=== PATIENT | female | born 1955 | race African-American/Black ===

== ENCOUNTER 2019-04-27 08:38 | Observation (INO) | payer OTHER ==
[2019-04-27] MEDS ORDERED: Ondansetron PF 4 MG/2 ML Vial ONE (09:01)
[2019-04-27 10:22] LABS: Bilirubin Negative (Negative); Blood, Urine Trace (Negative); Clarity Turbid (Clear); Glucose, Urine (Dipstick) Normal (Negative); Leukocyte 500 Leu/uL (Negative); Nitrite Negative (Negative); Protein, Urine (Dipstick) 20 mg/dL (Neg-Trace); RBC/HPF 0-3 HPF (0-3); Urobilinogen Normal mg/dL (Less than 2); WBC/HPF Greater than 50 HPF (0-3)
[2019-04-27 10:29] LABS: Bacteria/HPF 1+ HPF (None Seen)
[2019-04-27 10:36] LABS: ALT (SGPT) 20 U/L (8-55); AST (SGOT) 30 U/L (5-34); Albumin 3.5 g/dL (3.4-4.8); Alkaline Phosphatase 112 U/L (40-110); Anion Gap 13 mmol/L (10-20); BUN (Urea Nitrogen) 28 mg/dL (9.8-20.1); Bilirubin, Total 0.6 mg/dL (0.2-1.2); Calc. Creatinine Clearance 0 mL/min (70-130); Calcium 8.9 mg/dL (7.8-10.44); Carbon Dioxide 22 mmol/L (23-31); Chloride 107 mmol/L (98-107); Estimated GFR-MDRD 37; Globulin 3.4 g/dL (2.4-3.5); Glucose 120 mg/dL (80-115); Potassium 3.2 mmol/L (3.5-5.1); Protein, Total 6.9 g/dL (6.0-8.3); Sodium 139 mmol/L (136-145)
[2019-04-27 10:38] LABS: Band 19 % (5-11); Eosinophils 1 % (0-10); Hemoglobin 12.4 g/dL (12.0-16.0); Lymphocytes 11 % (21-51); MDiff Complete? YES; Mean Corpuscular HGB CONC 31.8 g/dL (32.0-36.0); Mean Corpuscular Hemoglobin 27.2 pg (27.0-31.0); Mean Corpuscular Volume 85.6 fL (78.0-98.0); Mean Platelet Volume 8.4 fL (7.4-10.4); Metamyelocyte 1 % (0-0); Monocytes 2 % (0-10); Neutrophil 66 % (42-75); Platelet Count 227 thou/uL (130-400); RBC Distribution Width 12.3 % (11.5-14.5); RBC Morphology Normal; Red Blood Cell (RBC) Count 4.55 mill/uL (4.20-5.40); White Blood Cell (WBC) Count 10.9 thou/uL (4.8-10.8)
[2019-04-27] MEDS ORDERED: Potassium Chloride 20 MEQ TAB ONE (11:30)
[2019-04-27] MEDS ORDERED: cefTRIAXone\\ROCEPHIN 2 GM VIAL ONE (11:30)
--- NOTE | 2019-04-27 12:15 | PDOC.FPRHP ---
- History of Present Illness Chief Complaint: chills History of Present Illness: Pt is a 63 yo female who presents for fatigue, chills, weakness. She states her symptoms started yesterday with chills. She had an episode of emesis in the evening. When she woke this morning she experience fatigue, unable to get out of bed. At baseline she is ambulatory around the house. She then called EMS and was found to have a temp of 102.7. She denies increased frequency, retention, dysuria, hematuria. She feels much better after receiving fluids and abx. ED Course: The patient was found to have elevated bands, hypokalemia, and elevated creatinine with a lactic acid of 2.6. She was given 2L NS, 40mEqKCl, zofran, rocephin 2g. - Allergies/Adverse Reactions Allergies Allergy/AdvReac Type Severity Reaction Status Date / Time No Known Drug Allergies Allergy Verified 04/27/19 13:38 - Home Medications Medication Instructions Recorded Confirmed Type Amlodipine [Norvasc] 10 mg PO DAILY 04/27/19 04/27/19 History Colchicine [Colcrys] 0.6 mg PO DAILY 04/27/19 04/27/19 History Hydrochlorothiazide 25 mg PO QAM 04/27/19 04/27/19 History Insulin Aspart [Novolog Flexpen] 1 unit SQ ASDIR PRN 04/27/19 04/27/19 History Insulin Aspart [Novolog Flexpen] 8 units SQ TID-WM 04/27/19 04/27/19 History Insulin Glargine,Hum.Rec.Anlog 24 unit SC HS 04/27/19 04/27/19 History [Lantus Solostar] Nebivolol HCl [Bystolic] 20 mg PO BID 04/27/19 04/27/19 History Pravastatin Sodium 10 mg PO HS 04/27/19 04/27/19 History Spironolactone 25 mg PO DAILY 04/27/19 04/27/19 History - History PMHx: DM2, HTN, Hepatitis C s/p treatment, HLD, CAD s/p MD with no stents placed PSHx: section x3 FHx: Father - MD in 70s Social: , denies tobacco, drug use. Reports occasional EtOH use, no heavy drinking PCP: Lizette Certified Ethical Hacker: Lizette Code Status: Full - Review of Systems General: reports: fever/chills (chills), fatigue Eyes: denies: eye pain, vision changes ENT: denies: nasal congestion, rhinorrhea Respiratory: denies: cough, shortness of breath Cardiovascular: denies: chest pain, edema Gastrointestinal: reports: nausea, vomiting. denies: diarrhea, abdominal pain Genitourinary: denies: dysuria, polyuria, discharge Skin: denies: rashes, lesions Musculoskeletal: denies: swelling, arthritis/arthralgias Neurological: reports: weakness. denies: numbness Psychological: denies: anxiety, depression - Vital signs BP: 108/80 HR: 96 RR: 16 Tmax: 102.7 Pox: 97% on RA - Physical Exam Constitutional: NAD, awake, alert and oriented, well developed HEENT: PERRLA, EOMI Neck: FROM, trachea midline Heart: RRR, normal S1/S2, pulses present, no edema Lungs: CTAB, no respiratory distress, good air movement, no wheezing Abdomen: soft, non-tender, bowel sounds present -Abdomen: no suprapubic tenderness, no CVA tenderness Musculoskeletal: normal tone, ROM grossly normal Neurological: no focal deficit, CN II-XII intact Skin: no rash/lesions, no jaundice Heme/Lymphatic: no purpura, no petechia Psychiatric: normal mood and affect, good judgment and insight FMR H&P: Results - Labs Result Diagrams: 04/27/19 10:06 04/27/19 10:06 Lab results: WBC 10.9 thou/uL (4.8-10.8) H 04/27/19 10:06 Hgb 12.4 g/dL (12.0-16.0) 04/27/19 10:06 Hct 38.9 % (36.0-47.0) 04/27/19 10:06 MCV 85.6 fL (78.0-98.0) 04/27/19 10:06 Plt Count 227 thou/uL (130-400) 04/27/19 10:06 Band Neuts % (Manual) 19 % (5-11) H 04/27/19 10:06 Sodium 139 mmol/L (136-145) 04/27/19 10:06 Potassium 3.2 mmol/L (3.5-5.1) L 04/27/19 10:06 Chloride 107 mmol/L (98-107) 04/27/19 10:06 Carbon Dioxide 22 mmol/L (23-31) L 04/27/19 10:06 BUN 28 mg/dL (9.8-20.1) H 04/27/19 10:06 Creatinine 1.70 mg/dL (0.6-1.1) H 04/27/19 10:06 Glucose 120 mg/dL (80-115) H 04/27/19 10:06 Lactic Acid 2.6 mmol/L (0.5-2.2) H 04/27/19 10:06 Calcium 8.9 mg/dL (7.8-10.44) 04/27/19 10:06 Total Bilirubin 0.6 mg/dL (0.2-1.2) 04/27/19 10:06 AST 30 U/L (5-34) 04/27/19 10:06 ALT 20 U/L (8-55) 04/27/19 10:06 Alkaline Phosphatase 112 U/L (40-110) H 04/27/19 10:06 Serum Total Protein 6.9 g/dL (6.0-8.3) 04/27/19 10:06 Albumin 3.5 g/dL (3.4-4.8) 04/27/19 10:06 Urine Ketones Negative mg/dL (Negative) 04/27/19 10:03 Urine Blood Trace (Negative) A 04/27/19 10:03 Urine Nitrite Negative (Negative) 04/27/19 10:03 Ur Leukocyte Esterase 500 Dione/uL (Negative) A 04/27/19 10:03 Urine RBC 0-3 HPF (0-3) 04/27/19 10:03 Urine WBC Greater than 50 HPF (0-3) A 04/27/19 10:03 Ur Squamous Epith Cells 4-6 HPF (0-3) A 04/27/19 10:03 Urine Bacteria 1+ HPF (None Seen) A 04/27/19 10:03 FMR H&P: A/P - Problem List (1) Urinary tract infection Current Visit: Yes Status: Acute (2) Lactic acid acidosis Current Visit: Yes Status: Acute Code(s): E87.2 - ACIDOSIS (3) HTN (hypertension) Current Visit: Yes Status: Acute Code(s): I10 - ESSENTIAL (PRIMARY) HYPERTENSION (4) Sepsis Current Visit: Yes Status: Acute Code(s): A41.9 - SEPSIS, UNSPECIFIED ORGANISM (5) Diabetes Current Visit: Yes Status: Acute Code(s): E11.9 - TYPE 2 DIABETES MELLITUS WITHOUT COMPLICATIONS (6) HLD (hyperlipidemia) Current Visit: Yes Status: Acute Code(s): E78.5 - HYPERLIPIDEMIA, UNSPECIFIED (7) Hx of hepatitis C Current Visit: Yes Status: Acute Code(s): Z86.19 - PERSONAL HISTORY OF OTHER INFECTIOUS AND PARASITIC DISEASES - Plan Pt is a 63 yo female here for: # Sepsis 2/2 UTI - recophin 1 gm daily - s/p 2 L, start maintenance fluids - physical therapy - pending lactic, UCx BCx, procal # Elevated lactic acid - repeat # Hypokalemia - replete, recheck in am # HTN - hold home meds, restart am # ADRYAN vs CKD - administer fluids to see if creatinine improves - FeUrea pending # DM - not currently on medication, will clarify she does not take insulin # HLD - continue statin therapy #CAD - stable Diet: HH Fluids: LR 130 mls/hr VTE: Lovenox Code: Full Dispo: < 48 hrs FMR H&P: Upper Level - Pertinent history 63 y/o F reports last night she started getting chills and then had a single episode of N/V. She went to sleep and woke up this morning feeling chills again so she called EMS. Denies CP, SOB, cough, rhinorrhea, sore throat, fever, dysuria, abd pain. She has been tolerating food well. About 3-4 weeks ago she went to the doctor because of R flank pain. She did not have any other urinary symptoms at that time. The doctor said her kidneys were hurt. Denies any h/o kidney stones. She recently had tooth pulled on Apr 18 and was on penicillin for the infection before that. She reports she feels similar to when she has previously had UTI's. - Pertinent findings Vitals: BP: 108/80 HR: 96 RR: 16 Tmax: 102.7 Pox: 97% on RA PE: Gen - alert, oriented, NAD, resting comfortably in bed HEENT - MMM CV - RRR, no murmurs Lungs - CTAB, no wheezes Abd - soft, NTTP Back - No CVAT Labs: WBC 10.9, 19% bands, Lactic acid 2.6, BUN 28, Cr 1.7, GFR 37, K 3.2 - Plan Date/Time: 04/27/19 1215 I, Elina Meza MD, PGY-3, have evaluated this patient and agree with findings/ plan as outlined by internal corrosion specialist resident. Pertinent changes/additions are listed here. 1. Sepsis 2/2 UTI Pt with temp 102.7, HR 96, 19% bands, and lactic acid 2.6 as well as UA that showed >50 WBC and 1+ bacteria, but was also a clean catch with 4-6 squamous epithelial cells. She also of note had a recent tooth pulled after an infection that was treated with penicillin. s/p 2g rocephin, 2L NS -Will collect BCx although pt given abx prior to BCx -UCx -Continue rocephin -Check procal -Trend lactic acid -LR @ 130 2. ADRYAN vs CKD Pt with BUN 28 and Cr 1.7, likely prerenal ADRYAN. -Will check FeUrea -s/p NS 2L, will give LR @ 130 -Monitor -Avoid nephrotoxic agents 3. Elevated lactic acid Initial lactic acid 2.6, likely 2/2 sepsis -Will trend and give IVF as above 4. Hypokalemia Initial K 3.2, s/p 40mEq KCl in ED -Will repeat in AM with mag level 5. DM2 -Continue home meds -SSI -Diabetic order set 6. HTN Currently on lower end -Monitor closely in the setting of sepsis -Continue HCTZ, spironolactone, amlodipine, bystolic as long as BP will tolerate it 7. HLD -Continue pravastatin Code Status: Full Diet: CC Dispo: Obs on medical, LOS<48 hours Addendum - Attending - Attending Attestation Date/Time: 04/27/19 1700 I personally evaluated the patient and discussed the management with Dr. Sandoval /Susana I agree with the History, Examination, Assessment and Plan documented above with any addition or exceptions noted below. 63 yo AAF PMH HTN, CAD, HLD, and IDDM. Presents with 2 day hx of malaise, dysuria, and chills. No recent hospitalizations. Initial BP in er 90s/60s. resolved with fluid bolus. Exam benign. Labs show elevated WBC, elevated procal , and UA c/w UTI. S/P 2L fluid bolus and rocephin 1g. Observation for complicated UTI, volume depletion, and ADRYAN vs CKD. continue IV fluids and rocephin. blood cultures obtained on the floor. urine cultures pending. LOS likely < 2 midnights.
[2019-04-27] MEDS ORDERED: Ondansetron ODT 4 MG TAB PO PRN (13:29)
[2019-04-27] MEDS ORDERED: Ondansetron PF 4 MG/2 ML Vial IVP PRN (13:29)
[2019-04-27] MEDS ORDERED: Acetaminophen 325 MG TAB PO PRN (13:30)
[2019-04-27] MEDS ORDERED: Sodium Chloride 0.9% 1,000 ML IV SCH (13:30)
[2019-04-27] MEDS ORDERED: Dextrose 50% Abboject 50 ML SYRINGE SLOW IVP PRN (13:30)
[2019-04-27] MEDS ORDERED: HumaLOG 300 UNITS/3 ML VIAL SC PRN ×2 (13:30)
[2019-04-27] MEDS ORDERED: Dextrose 5% in Water 1,000 ML IV PRN (13:30)
[2019-04-27 13:35] VITALS: BMI 36.5
[2019-04-27] MEDS: Lactated Ringer's 1,000 ML IV SCH ×2 (13:55→21:42)
[2019-04-27 14:33] LABS: Lactic Acid 1.9 mmol/L (0.5-2.2)
[2019-04-27 14:56] LABS: Creatinine, Urine 93.61 mg/dL (47-110)
[2019-04-27] MEDS ORDERED: Simvastatin 5 MG TAB PO SCH (21:00)
[2019-04-28 05:07] LABS: #Eosinphils 0.2 thou/uL (0.0-0.7); #Lymphocytes 1.8 thou/uL (1.20-3.40); #Neutrophils 11.3 thou/uL (1.40-6.50); %Basophils 0.3 % (0.0-1.0); %Eosinophils 1.4 % (0.0-10.0); %Lymphocytes 12.5 % (21.0-51.0); %Monocytes 6.8 % (0.0-10.0); Hemoglobin 12.2 g/dL (12.0-16.0); Mean Corpuscular HGB CONC 32.6 g/dL (32.0-36.0); Mean Corpuscular Hemoglobin 27.7 pg (27.0-31.0); Mean Corpuscular Volume 84.9 fL (78.0-98.0); Mean Platelet Volume 9.1 fL (7.4-10.4); Platelet Count 207 thou/uL (130-400); RBC Distribution Width 12.2 % (11.5-14.5); Red Blood Cell (RBC) Count 4.41 mill/uL (4.20-5.40); White Blood Cell (WBC) Count 14.4 thou/uL (4.8-10.8)
[2019-04-28] MEDS: Lactated Ringer's 1,000 ML IV SCH (05:15)
[2019-04-28 05:29] LABS: Anion Gap 12 mmol/L (10-20); BUN (Urea Nitrogen) 21 mg/dL (9.8-20.1); Calc. Creatinine Clearance 54 mL/min (70-130); Carbon Dioxide 22 mmol/L (23-31); Chloride 107 mmol/L (98-107); Estimated GFR-MDRD 40; Glucose 162 mg/dL (80-115); Potassium 3.9 mmol/L (3.5-5.1); Sodium 137 mmol/L (136-145)
--- NOTE | 2019-04-28 06:07 | PDOC.FM ---
- Subjective Subjective: Pt is doing well today. She has no complaints. Denies fever, chills. Mildly fatigued but improving. She would feel comfortable going home today. Her feels fine managing her at home. - Objective Vital Signs & Weight: Vital Signs (12 hours) Temp Pulse Resp BP Pulse Ox 04/28/19 03:09 99.3 F 82 17 113/64 96 04/27/19 19:35 99.3 F 79 16 128/69 97 Weight Weight 94.483 kg I&O: 04/26/19 04/27/19 04/28/19 06:59 06:59 06:59 Intake Total 2683 Output Total 1150 Balance 1533 Result Diagrams: 04/28/19 04:43 04/28/19 04:43 Phys Exam - Physical Examination Constitutional: NAD HEENT: PERRLA, moist MMs Respiratory: no wheezing, no rhonchi, clear to auscultation bilateral Cardiovascular: RRR, no significant murmur Gastrointestinal: soft, non-tender, no distention No suprapubic pain Musculoskeletal: no edema, pulses present Psychiatric: normal affect, A&O x 3 Dx/Plan (1) Urinary tract infection Status: Acute (2) Lactic acid acidosis Code(s): E87.2 - ACIDOSIS Status: Acute (3) HTN (hypertension) Code(s): I10 - ESSENTIAL (PRIMARY) HYPERTENSION Status: Acute (4) Sepsis Code(s): A41.9 - SEPSIS, UNSPECIFIED ORGANISM Status: Acute (5) Diabetes Code(s): E11.9 - TYPE 2 DIABETES MELLITUS WITHOUT COMPLICATIONS Status: Acute (6) HLD (hyperlipidemia) Code(s): E78.5 - HYPERLIPIDEMIA, UNSPECIFIED Status: Acute (7) Hx of hepatitis C Code(s): Z86.19 - PERSONAL HISTORY OF OTHER INFECTIOUS AND PARASITIC DISEASES Status: Acute - Plan Plan: Pt is a 63 yo female here for: # Sepsis 2/2 UTI - recophin 2 gm daily - s/p 2 L, continue maintenance fluids - physical therapy - UCx BCx, procal elevated from 8 to 22.4. Will repeat procal at 1400 to see if downtrending. Otherwise pt appears stable, AAO x 3, w/o complaints, afebrile. # Elevated lactic acid - resolved - repeat 1.9 # Hypokalemia - replete as necessary # HTN - hold home meds, holding at this time as her BP is low normal # ADRYAN vs CKD - improving, unsure pt's baseline, will continue fluids - FeUrea pre-renal # DM - restarted Lantus 24 U, Humalog 8 U TID - SSI # HLD - continue statin therapy #CAD - stable Diet: HH Fluids: LR 130 mls/hr VTE: Lovenox Code: Full Dispo: < 48 hrs Addendum - Attending - Attending Attestation Date/Time: 04/28/19 1210 I personally evaluated the patient and discussed the management with Dr. Sandoval I agree with the History, Examination, Assessment and Plan documented above with any addition or exceptions noted below. clinically improved. prelim culture E.coli. sensitivities pending. will d/c IV fluids, restart beta casey and repeat procal this afternoon. If down trending , will d/c on 7 total days of omnicef. if not, IV rocephin overnight and recheck labs in the morning and await sensitivities.
[2019-04-28] MEDS: HumaLOG 300 UNITS/3 ML VIAL SC SCH ×2 (08:39→13:54)
[2019-04-28] MEDS ORDERED: Enoxaparin Sodium 40 MG/0.4 ML SYRINGE SC SCH (09:00)
[2019-04-28] MEDS ORDERED: cefTRIAXone\\ROCEPHIN 2 GM in Sodium Chloride 0.9% 100 ML IVPB SCH (12:00)
[2019-04-28] MEDS ORDERED: cefTRIAXone\\ROCEPHIN 1 GM in Sodium Chloride 0.9% 100 ML IVPB SCH (12:00)
[2019-04-28] MEDS ORDERED: Nebivolol HCl 5 MG TAB PO SCH ×2 (12:30→21:00)
[2019-04-28 15:55] VITALS: BP 118/71; TEMP 99
[2019-04-28] MEDS ORDERED: Non-Formulary Item 1 EACH (Insulin Glargine,Hum.Rec.Anlog [Lantus Solostar] 24 UNIT) SC SCH (21:00)
[2019-04-28] MEDS ORDERED: Insulin Glargine 24 UNITS in Pre-Filled Syringe 1 EACH SC SCH (21:00)
--- NOTE | 2019-05-01 09:44 | DIS ---
DATE OF ADMISSION: 04/27/2019 DATE OF DISCHARGE: 04/28/2019 RESIDENT: Chase Sandoval DO ADMITTING ATTENDING: Billy Bosch MD DISCHARGE ATTENDING: Billy Bosch MD CONSULTS: None. PROCEDURES: None. PRIMARY DIAGNOSES: 1. Sepsis secondary to urinary tract infection. 2. Urinary tract infection. 3. Elevated lactic acid. 4. Hypokalemia. SECONDARY DIAGNOSES: 1. Hypertension. 2. Chronic kidney disease. 3. Diabetes mellitus. 4. Hyperlipidemia. 5. Coronary artery disease. DISCHARGE MEDICATIONS: 1. Pravastatin 10 mg p.o. at bedtime. 2. Amlodipine 10 mg p.o. daily. 3. Spironolactone 25 mg p.o. daily. 4. Bystolic 20 mg p.o. b.i.d. 5. Hydrochlorothiazide 25 mg p.o. q.a.m. 6. Colchicine 0.6 mg p.o. daily. 7. Insulin glargine 24 units subcu at bedtime. 8. NovoLog 8 units subcu t.i.d. with meals. 9. Cefdinir 300 mg p.o. b.i.d. x7 days. DISCONTINUED MEDICATIONS: None. HISTORY OF PRESENT ILLNESS/HOSPITAL COURSE: Emilia Lynn is a 63-year-old female, who presented for fatigue, chills, and weakness. She was found to have sepsis secondary to urinary tract infection. She says that she had the symptoms for the day prior and was unable to get out of bed due to fatigue in the morning and she was seen at the emergency department. At baseline, she is able to ambulate well at home per family. The EMS documented her have a temperature of 102.7. She also had a lactic acid of 2.6, white blood cell count of 10.9 with bandemia. The patient's heart rate was 96 and oxygen saturations were fine. Her UA revealed urine bacteria 1+, urine squamous epithelial cells, urine white blood cells greater than 50, urine leukocyte esterase 500, negative nitrites. Her urine culture grew out E coli. The patient received 2 days worth of ceftriaxone for her urinary tract infection with good sensitivities on the urine culture. The patient was then discharged to home with Omnicef for 14 days. Blood cultures were negative. Of note, the patient had a procalcitonin of 22.43, which downtrended to 18.14, at the time of discharge. The patient also felt well with going home and felt that she had returned to her baseline. She had a good p.o. intake and was able to ambulate on her own. This plan was also discussed with her . DISPOSITION: Stable. DISCHARGE INSTRUCTIONS: 1. Location: [facility]. 2. Diet: Heart healthy and diabetic diet. 3. Activity: Ad pretty. 4. Followup: Follow up with her Calin Bauer provider within 7 days. Job ID: [id number]
== END 2019-04-28 16:53 | disposition home or self-care (01) ==
LOC: ERS 08:38 → 2SW 11:11
PROVIDERS: ADMIT Family Medicine; ATTEND Family Medicine
DX: A41.9 Sepsis, unspecified organism (principal); N39.0 Urinary tract infection, site not specified; E87.2 Acidosis; E87.6 Hypokalemia; E11.9 Type 2 diabetes mellitus without complications; I10 Essential (primary) hypertension; I25.10 Atherosclerotic heart disease of native coronary artery without angina pectoris; Z79.4 Long term (current) use of insulin; Z79.899 Other long term (current) drug therapy
CPT/HCPCS: 36415; 36416; 80048; 80053; 81003; 81015; 82570; 83605; 84145; 84540; 85025; 87040; 87077; 87086; 87186; 87804; 96361; 96365; 96366; 96372; 96375; G0378; J0696; J1650; J1815; J2405; J3490; J7120

== ENCOUNTER 2020-06-29 09:25 | Inpatient (IN) | payer MEDICARE ==
[2020-06-29] MEDS ORDERED: Iopamidol-370 76% 500 ML 1 ML ONE (10:08)
[2020-06-29 10:18] LABS: ALT (SGPT) 20 U/L (8-55); AST (SGOT) 37 U/L (5-34); Albumin 3.7 g/dL (3.4-4.8); Alkaline Phosphatase 149 U/L (40-110); Anion Gap 17 mmol/L (10-20); BUN (Urea Nitrogen) 23 mg/dL (9.8-20.1); Bilirubin, Total 0.4 mg/dL (0.2-1.2); CK (CPK) 299 U/L (29-168); Calc. Creatinine Clearance 0 mL/min (70-130); Calcium 9.5 mg/dL (7.8-10.44); Carbon Dioxide 23 mmol/L (23-31); Chloride 105 mmol/L (98-107); Globulin 4.1 g/dL (2.4-3.5); Glucose 145 mg/dL (80-115); INR-International Normal Ratio 1.1; Potassium 3.6 mmol/L (3.5-5.1); Protein, Total 7.8 g/dL (5.8-8.1); Prothrombin Time 14.9 sec (12.0-14.7); Sodium 141 mmol/L (136-145)
[2020-06-29 10:33] LABS: #Eosinphils 0.1 thou/uL (0.0-0.7); #Lymphocytes 1.6 thou/uL (1.20-3.40); #Monocytes 0.4 thou/uL (0.11-0.59); #Neutrophils 3.3 thou/uL (1.40-6.50); %Basophils 0.5 % (0.0-1.0); %Eosinophils 2.6 % (0.0-10.0); %Lymphocytes 29.6 % (21.0-51.0); %Monocytes 6.5 % (0.0-10.0); %Neutrophils 60.8 % (42.0-75.0); Hemoglobin 14.8 g/dL (12.0-16.0); Mean Corpuscular HGB CONC 32.7 g/dL (32.0-36.0); Mean Corpuscular Hemoglobin 27.9 pg (27.0-31.0); Mean Corpuscular Volume 85.6 fL (78.0-98.0); Mean Platelet Volume 10.1 fL (7.4-10.4); Platelet Count 174 thou/uL (130-400); Red Blood Cell (RBC) Count 5.28 mill/uL (4.20-5.40); White Blood Cell (WBC) Count 5.4 thou/uL (4.8-10.8)
[2020-06-29 10:41] LABS: CKMB 2.6 ng/mL (0-6.6)
[2020-06-29] MEDS ORDERED: Aspirin 300 MG Suppository ONE (10:52)
[2020-06-29 11:36] LABS: Bacteria/HPF 1+ HPF (None Seen); Bilirubin Negative (Negative); Blood, Urine Negative (Negative); Clarity Clear (Clear); Glucose, Urine (Dipstick) Greater than 1000 mg/dL (Negative); Ketone, Urine Negative (Negative); Leukocyte 25 Leu/uL (Negative); Nitrite 1+ (Negative); Protein, Urine (Dipstick) Negative (Neg-Trace); RBC/HPF None Seen HPF (0-3); Specific Gravity, Urine 1.029 (1.002-1.036); Squamous Epithelial 0-3 HPF (0-3); Urobilinogen Normal mg/dL (Less than 2); pH, Urine 5.5 (5.0-9.0)
[2020-06-29] MEDS ORDERED: HumaLOG 300 UNITS/3 ML VIAL SC PRN (12:12)
[2020-06-29] MEDS ORDERED: Dextrose 5% in Water 1,000 ML IV PRN (12:12)
[2020-06-29] MEDS ORDERED: Acetaminophen 325 MG TAB PO PRN (12:12)
[2020-06-29] MEDS ORDERED: Dextrose 50% Abboject 50 ML SYRINGE SLOW IVP PRN (12:12)
[2020-06-29] MEDS ORDERED: Bisacodyl 10 MG SUPP PR PRN (12:12)
[2020-06-29] MEDS ORDERED: Acetaminophen 650 MG Suppository PR PRN (12:12)
[2020-06-29] MEDS ORDERED: Senokot S 8.6-50 MG TAB PO PRN (12:12)
[2020-06-29] MEDS ORDERED: Ondansetron PF 4 MG/2 ML Vial IVP PRN (12:12)
[2020-06-29] MEDS ORDERED: Calcium Carbonate 500 MG ChewTAB PO PRN (12:12)
[2020-06-29] MEDS ORDERED: Guaifenesin DM 100-10/5 ML UDCUP PO PRN (12:12)
[2020-06-29] MEDS ORDERED: cefTRIAXone\\ROCEPHIN 2 GM VIAL ONE (12:42)
[2020-06-29 13:49] LABS: Troponin I 0.033 ng/mL (< 0.028)
[2020-06-29 21:47] LABS: SARS-CoV-2 PCR by NAA Not Detected (NotDetected)
[2020-06-29] MEDS: Atorvastatin Calcium 40 MG TAB PO SCH (22:25)
[2020-06-29 22:33] VITALS: BMI 31.1
[2020-06-30] MEDS: D5 1/2 NS w/10 mEq KCl 1,000 ML/1,000 ML BAG IV SCH ×2 (00:59→17:34)
[2020-06-30 05:23] LABS: ALT (SGPT) 20 U/L (8-55); AST (SGOT) 35 U/L (5-34); Albumin 3.7 g/dL (3.4-4.8); Alkaline Phosphatase 112 U/L (40-110); Anion Gap 15 mmol/L (10-20); BUN (Urea Nitrogen) 23 mg/dL (9.8-20.1); Bilirubin, Total 0.6 mg/dL (0.2-1.2); Calc. Creatinine Clearance 56 mL/min (70-130); Calcium 9.6 mg/dL (7.8-10.44); Carbon Dioxide 23 mmol/L (23-31); Cardiac Risk 4.3 (Less than 4.5); Chloride 107 mmol/L (98-107); Cholesterol 107 mg/dl (< 200 Desired); Globulin 3.9 g/dL (2.4-3.5); Glucose 117 mg/dL (80-115); HDL Cholesterol 25 mg/dL (>60 Neg Risk); LDL Cholesterol, Calculated 64 mg/dL; Protein, Total 7.6 g/dL (5.8-8.1); Sodium 142 mmol/L (136-145); Triglycerides 90 mg/dL (Less than 150)
[2020-06-30 05:26] LABS: Potassium 2.9 mmol/L (3.5-5.1)
[2020-06-30] MEDS: Potassium Chloride 20 MEQ in Premix Bag 1 BAG IVPB SCH ×2 (06:06→11:21)
[2020-06-30 06:48] LABS: #Eosinphils 0.2 thou/uL (0.0-0.7); #Lymphocytes 2.4 thou/uL (1.20-3.40); #Monocytes 0.5 thou/uL (0.11-0.59); #Neutrophils 3.2 thou/uL (1.40-6.50); %Basophils 0.7 % (0.0-1.0); %Eosinophils 3.5 % (0.0-10.0); %Lymphocytes 37.3 % (21.0-51.0); %Monocytes 8.4 % (0.0-10.0); Hemoglobin 14.8 g/dL (12.0-16.0); Mean Corpuscular Hemoglobin 27.6 pg (27.0-31.0); Mean Corpuscular Volume 86.3 fL (78.0-98.0); Platelet Count 215 thou/uL (130-400); RBC Distribution Width 12.9 % (11.5-14.5); Red Blood Cell (RBC) Count 5.35 mill/uL (4.20-5.40); White Blood Cell (WBC) Count 6.4 thou/uL (4.8-10.8)
[2020-06-30] MEDS: Nebivolol HCl 5 MG TAB PO SCH (09:29)
[2020-06-30] MEDS: Enoxaparin Sodium 30 MG/0.3 ML SYRINGE SC SCH (09:29)
[2020-06-30] MEDS: Aspirin 300 MG Suppository PR SCH (09:29)
[2020-06-30] MEDS ORDERED: Colchicine 0.6 MG TAB PO SCH (13:15)
[2020-06-30] MEDS ORDERED: Amlodipine 10 MG TAB PO SCH (13:15)
[2020-06-30] MEDS: Atorvastatin Calcium 40 MG TAB PO SCH (21:17)
[2020-06-30] MEDS: Lantus 1000 UNITS/10 ML VIAL SC SCH (21:23)
[2020-07-01] MEDS: D5 1/2 NS w/10 mEq KCl 1,000 ML/1,000 ML BAG IV SCH ×2 (03:06→15:05)
[2020-07-01 06:13] LABS: Hemoglobin A1c 6.8 % (4.0-6.0)
[2020-07-01 06:35] LABS: ALT (SGPT) 23 U/L (8-55); AST (SGOT) 44 U/L (5-34); Albumin 3.4 g/dL (3.4-4.8); Alkaline Phosphatase 104 U/L (40-110); Anion Gap 16 mmol/L (10-20); BUN (Urea Nitrogen) 22 mg/dL (9.8-20.1); Bilirubin, Total 0.4 mg/dL (0.2-1.2); Calc. Creatinine Clearance 55 mL/min (70-130); Calcium 9.4 mg/dL (7.8-10.44); Carbon Dioxide 20 mmol/L (23-31); Chloride 106 mmol/L (98-107); Globulin 4.1 g/dL (2.4-3.5); Glucose 145 mg/dL (80-115); Magnesium 1.9 mg/dL (1.6-2.6); Potassium 3.6 mmol/L (3.5-5.1); Protein, Total 7.5 g/dL (5.8-8.1); Sodium 138 mmol/L (136-145)
[2020-07-01] MEDS: Amlodipine 10 MG TAB PO SCH (09:25)
[2020-07-01] MEDS: Colchicine 0.6 MG TAB PO SCH (09:27)
[2020-07-01] MEDS: Nebivolol HCl 5 MG TAB PO SCH (09:27)
[2020-07-01] MEDS: Enoxaparin Sodium 30 MG/0.3 ML SYRINGE SC SCH (09:31)
[2020-07-01] MEDS: Aspirin 300 MG Suppository PR SCH (09:32)
[2020-07-01] MEDS: HumaLOG 300 UNITS/3 ML VIAL SC PRN ×2 (14:03→18:24)
[2020-07-01] MEDS: Atorvastatin Calcium 40 MG TAB PO SCH (22:25)
[2020-07-01] MEDS: Lantus 1000 UNITS/10 ML VIAL SC SCH (22:26)
[2020-07-02 06:22] LABS: #Basophils 0.1 thou/uL (0.0-0.2); #Eosinphils 0.3 thou/uL (0.0-0.7); #Lymphocytes 2.7 thou/uL (1.20-3.40); #Monocytes 0.5 thou/uL (0.11-0.59); #Neutrophils 2.8 thou/uL (1.40-6.50); %Basophils 1.2 % (0.0-1.0); %Eosinophils 4.9 % (0.0-10.0); %Lymphocytes 42.7 % (21.0-51.0); %Monocytes 7.4 % (0.0-10.0); %Neutrophils 43.8 % (42.0-75.0); Hemoglobin 13.9 g/dL (12.0-16.0); Mean Corpuscular Hemoglobin 26.6 pg (27.0-31.0); Mean Corpuscular Volume 85.8 fL (78.0-98.0); Mean Platelet Volume 8.7 fL (7.4-10.4); Platelet Count 219 thou/uL (130-400); RBC Distribution Width 12.8 % (11.5-14.5); Red Blood Cell (RBC) Count 5.24 mill/uL (4.20-5.40); White Blood Cell (WBC) Count 6.4 thou/uL (4.8-10.8)
[2020-07-02 06:48] LABS: Anion Gap 13 mmol/L (10-20); BUN (Urea Nitrogen) 16 mg/dL (9.8-20.1); Calc. Creatinine Clearance 68 mL/min (70-130); Calcium 9.5 mg/dL (7.8-10.44); Carbon Dioxide 22 mmol/L (23-31); Chloride 106 mmol/L (98-107); Glucose 124 mg/dL (80-115); Magnesium 1.8 mg/dL (1.6-2.6); Potassium 3.4 mmol/L (3.5-5.1); Sodium 138 mmol/L (136-145)
[2020-07-02] MEDS: Aspirin 325 MG TAB PO SCH (08:38)
[2020-07-02] MEDS: Nebivolol HCl 5 MG TAB PO SCH (08:39)
[2020-07-02] MEDS: Colchicine 0.6 MG TAB PO SCH (08:40)
[2020-07-02] MEDS: Enoxaparin Sodium 30 MG/0.3 ML SYRINGE SC SCH (08:41)
[2020-07-02] MEDS: Amlodipine 10 MG TAB PO SCH (08:41)
[2020-07-02] MEDS ORDERED: Potassium Chloride 20 MEQ TAB PO SCH (08:45)
[2020-07-02] MEDS: HumaLOG 300 UNITS/3 ML VIAL SC PRN ×2 (12:36→17:14)
[2020-07-02] MEDS: Lantus 1000 UNITS/10 ML VIAL SC SCH (21:28)
[2020-07-02] MEDS: Atorvastatin Calcium 40 MG TAB PO SCH (21:28)
[2020-07-03] MEDS ORDERED: Losartan 25 MG TAB PO SCH (10:00)
[2020-07-03] MEDS: Amlodipine 10 MG TAB PO SCH (10:15)
[2020-07-03] MEDS: Aspirin 325 MG TAB PO SCH (10:16)
[2020-07-03] MEDS: Colchicine 0.6 MG TAB PO SCH (10:16)
[2020-07-03] MEDS: Nebivolol HCl 5 MG TAB PO SCH (10:17)
[2020-07-03] MEDS: Enoxaparin Sodium 30 MG/0.3 ML SYRINGE SC SCH (10:17)
[2020-07-03] MEDS: Lantus 1000 UNITS/10 ML VIAL SC SCH (22:02)
[2020-07-03] MEDS: Atorvastatin Calcium 40 MG TAB PO SCH (22:02)
[2020-07-04 07:45] VITALS: TEMP 98
[2020-07-04] MEDS: Aspirin 325 MG TAB PO SCH (08:36)
[2020-07-04] MEDS: Nebivolol HCl 5 MG TAB PO SCH (08:36)
[2020-07-04] MEDS: Colchicine 0.6 MG TAB PO SCH (08:36)
[2020-07-04 08:37] LABS: #Basophils 0.1 thou/uL (0.0-0.2); #Eosinphils 0.5 thou/uL (0.0-0.7); #Lymphocytes 2.9 thou/uL (1.20-3.40); #Monocytes 0.5 thou/uL (0.11-0.59); #Neutrophils 3.5 thou/uL (1.40-6.50); %Eosinophils 6.2 % (0.0-10.0); %Lymphocytes 38.9 % (21.0-51.0); %Monocytes 7.1 % (0.0-10.0); %Neutrophils 46.8 % (42.0-75.0); Hemoglobin 14.3 g/dL (12.0-16.0); Mean Corpuscular HGB CONC 32.9 g/dL (32.0-36.0); Mean Corpuscular Hemoglobin 28.1 pg (27.0-31.0); Mean Corpuscular Volume 85.6 fL (78.0-98.0); Mean Platelet Volume 9.4 fL (7.4-10.4); Platelet Count 242 thou/uL (130-400); Red Blood Cell (RBC) Count 5.09 mill/uL (4.20-5.40); White Blood Cell (WBC) Count 7.5 thou/uL (4.8-10.8)
[2020-07-04] MEDS: Amlodipine 10 MG TAB PO SCH (08:37)
[2020-07-04] MEDS: Enoxaparin Sodium 30 MG/0.3 ML SYRINGE SC SCH (08:37)
[2020-07-04 08:57] LABS: Anion Gap 15 mmol/L (10-20); BUN (Urea Nitrogen) 20 mg/dL (9.8-20.1); Calc. Creatinine Clearance 60 mL/min (70-130); Calcium 9.8 mg/dL (7.8-10.44); Carbon Dioxide 23 mmol/L (23-31); Chloride 105 mmol/L (98-107); Glucose 114 mg/dL (80-115); Magnesium 1.7 mg/dL (1.6-2.6); Potassium 3.8 mmol/L (3.5-5.1); Sodium 139 mmol/L (136-145)
[2020-07-04] MEDS ORDERED: Losartan 25 MG TAB PO SCH (09:00)
[2020-07-04 11:35] VITALS: BP 150/92
== END 2020-07-04 17:28 | DRG 65 ==
LOC: ERS 09:25 → ERHOLD 12:12 → 2SE 18:22 → OBSVTOIN 06-30 13:12
PROVIDERS: ADMIT Internal Medicine; ATTEND Internal Medicine
DX: I63.9 Cerebral infarction, unspecified (principal); G81.91 Hemiplegia, unspecified affecting right dominant side; G93.40 Encephalopathy, unspecified; N17.9 Acute kidney failure, unspecified; I10 Essential (primary) hypertension; R47.01 Aphasia; M10.9 Gout, unspecified; E78.5 Hyperlipidemia, unspecified; R29.810 Facial weakness; E87.6 Hypokalemia; E11.9 Type 2 diabetes mellitus without complications; Z79.4 Long term (current) use of insulin; Z86.73 Personal history of transient ischemic attack (TIA), and cerebral infarction without residual deficits; I25.2 Old myocardial infarction; Z83.3 Family history of diabetes mellitus; Z82.49 Family history of ischemic heart disease and other diseases of the circulatory system; Z86.19 Personal history of other infectious and parasitic diseases
CPT/HCPCS: 36415; 36416; 51701; 70450; 70496; 70498; 70551; 80048; 80053; 80061; 81003; 81015; 82550; 82553; 83036; 83735; 84484; 85025; 85610; 85730; 87635; 93005; 93306; 95712; 95819; 95957; 96365; 96372; G0378; J0696; J1650; J1815; J3480; Q9967; U0003; U0005

== ENCOUNTER 2020-11-20 08:41 | Outpatient (CLI) | payer MEDICARE, OTHER | END 2020-11-20 08:42 | disposition home or self-care (01) | LOC: BICMAMMO 08:41 | PROVIDERS: ATTEND Family Medicine | DX: Z12.31 Encounter for screening mammogram for malignant neoplasm of breast (principal); Z80.3 Family history of malignant neoplasm of breast | CPT/HCPCS: 77063; 77067 ==

== ENCOUNTER 2024-01-18 13:05 | Outpatient (CLI) | payer OTHER | END 2024-01-18 13:06 | disposition home or self-care (01) | LOC: BICULT 13:05 | PROVIDERS: ATTEND Internal Medicine Nephrology | DX: I12.9 Hypertensive chronic kidney disease with stage 1 through stage 4 chronic kidney disease, or unspecified chronic kidney disease (principal); N18.30 Chronic kidney disease, stage 3 unspecified; R93.421 Abnormal radiologic findings on diagnostic imaging of right kidney; R93.422 Abnormal radiologic findings on diagnostic imaging of left kidney | CPT/HCPCS: 76770; 93975 ==